=== PATIENT | female | born 1945 | race Caucasian/White ===

== ENCOUNTER 2020-10-22 20:12 | Emergency (ER) | payer MEDICARE ==
[~2020-10-22 20:12] MED LIST: EPINEPHrine 1 MG/ML AMP ONE; Furosemide 40 MG/4 ML VIAL ONE; Norepinephrine 4 MG/4 ML VIAL ONE; Sodium Chloride 0.9% 1,000 ML BAG ONE; Succinylcholine 200 MG/10 ml SYRINGE FS ONE
[2020-10-22] MEDS ORDERED: Aspirin Chewable 81 MG TAB ONE (21:53)
[2020-10-22] MEDS ORDERED: Sodium Chloride 0.9% 1,000 ML ONE (21:53)
[2020-10-22 21:59] LABS: #Basophils 0.1 thou/uL (0.0-0.2); #Eosinphils 0.2 thou/uL (0.0-0.7); #Lymphocytes 2.9 thou/uL (1.20-3.40); #Monocytes 0.9 thou/uL (0.11-0.59); #Neutrophils 9.5 thou/uL (1.40-6.50); %Eosinophils 1.6 % (0.0-10.0); %Lymphocytes 21.4 % (21.0-51.0); %Monocytes 6.6 % (0.0-10.0); %Neutrophils 69.4 % (42.0-75.0); Hemoglobin 14.4 g/dL (12.0-16.0); Mean Corpuscular HGB CONC 31.8 g/dL (32.0-36.0); Mean Corpuscular Volume 94.3 fL (78.0-98.0); Mean Platelet Volume 7.8 fL (7.4-10.4); Platelet Count 233 thou/uL (130-400); RBC Distribution Width 12.1 % (11.5-14.5); Red Blood Cell (RBC) Count 4.79 mill/uL (4.20-5.40); White Blood Cell (WBC) Count 13.7 thou/uL (4.8-10.8)
[2020-10-22 22:14] LABS: ALT (SGPT) 19 U/L (8-55); AST (SGOT) 23 U/L (5-34); Albumin 4.1 g/dL (3.4-4.8); Alkaline Phosphatase 59 U/L (40-110); Anion Gap 18 mmol/L (10-20); BUN (Urea Nitrogen) 25 mg/dL (9.8-20.1); Bilirubin, Total 0.4 mg/dL (0.2-1.2); CK (CPK) 133 U/L (29-168); Calc. Creatinine Clearance 0 mL/min (70-130); Calcium 9.9 mg/dL (7.8-10.44); Carbon Dioxide 26 mmol/L (23-31); Chloride 100 mmol/L (98-107); Globulin 3.3 g/dL (2.4-3.5); Glucose 111 mg/dL (83-110); Potassium 3.6 mmol/L (3.5-5.1); Protein, Total 7.4 g/dL (5.8-8.1); Sodium 140 mmol/L (136-145)
[2020-10-22] MEDS ORDERED: Furosemide 40 MG/4 ML VIAL ONE ×2 (22:33→22:41)
[2020-10-22 22:49] LABS: CKMB 7.2 ng/mL (0-6.6)
[2020-10-22] MEDS ORDERED: Ketamine 50 MG/ML (10ML VIAL) ONE (22:59)
[2020-10-22 23:25] LABS: SARS-CoV-2 NAA Rapid Test Not Detected (NotDetected)
[2020-10-22] MEDS ORDERED: Lorazepam 2 MG/ML VIAL ONE (23:38)
[2020-10-22] MEDS ORDERED: Morphine 4 MG/ML VIAL ONE (23:44)
[2020-10-22] MEDS ORDERED: Norepinephrine 4 MG/4 ML VIAL ONE (23:52)
[2020-10-23] MEDS ORDERED: Lorazepam 2 MG/ML VIAL ONE (00:06)
[2020-10-23] MEDS ORDERED: Morphine 4 MG/ML VIAL ONE (00:06)
[2020-10-23] MEDS ORDERED: Sodium Chloride 0.9% 1,000 ML ONE (05:09)
[2020-10-23] MEDS ORDERED: Sodium Chloride 0.9% 250 ML 250 ML ONE (05:09)
== END 2020-10-23 00:42 | disposition short-term general hospital (02) ==
LOC: MADERS 20:12
DX: J96.00 Acute respiratory failure, unspecified whether with hypoxia or hypercapnia (principal); I21.4 Non-ST elevation (NSTEMI) myocardial infarction; J81.1 Chronic pulmonary edema; Z20.822 Contact with and (suspected) exposure to COVID-19; E78.00 Pure hypercholesterolemia, unspecified; E78.5 Hyperlipidemia, unspecified
CPT/HCPCS: 0240U; 31500; 51702; 71045; 80053; 82550; 82553; 83605; 83880; 84484; 85025; 85379; 86140; 87040; 93005; 94760; 96361; 96365; 96375; 96376; J0171; J1940; J2060; J2270; J7050; J7070